=== PATIENT | female | born 1935 | race African-American/Black ===

== ENCOUNTER 2016-07-27 11:20 | Emergency (ER) | payer OTHER, BC ==
[2016-07-27 11:31] VITALS: TEMP 97.6; BMI 20.2
--- NOTE | 2016-07-27 13:19 | PDOC ---
History of Present Illness - General Chief Complaint: Pain Stated Complaint: PAIN, FEVER Time Seen by Provider: 07/27/16 12:39 History Source: Patient Exam Limitations: No Limitations - History of Present Illness Initial Comments: CHIEF COMPLAINT: 81 y/o afebrile female with PMH HTN c/o pain to left side of mouth. HISTORY OF PRESENT ILLNESS: The patient was diagnosed with a salivary gland stone via CT scan on 07/08. At that time she was given supportive care instructions and informed that the stone should pass on its own. She followed up with an ENT who started her on Augmentin and Prednisone, which she is still taking. She states her symptoms are not improving and she cannot eat. She states she can drink liquids. She also admits to fever of 102 for the past few days. She denies chills, LEIVA, n/v/d, CP, SOB, abd pain. Vital signs on arrival are notable for pulse of 95. REVIEW OF SYSTEMS: GENERAL/CONSTITUTIONAL: + fever/chills. No weakness. No weight change. HEAD, EYES, EARS, NOSE AND THROAT: No change in vision. No ear pain or discharge. No sore throat. +pain and swelling to left side of face. +pain with eating. CARDIOVASCULAR: No chest pain or shortness of breath. RESPIRATORY: No cough, wheezing, or hemoptysis. GASTROINTESTINAL: No abd pain, nausea, vomiting, diarrhea. GENITOURINARY: No dysuria, frequency, or change in urination. MUSCULOSKELETAL: No joint or muscle swelling or pain. No neck or back pain. SKIN: No rash or easy bruising. NEUROLOGIC: No headache, vertigo, loss of consciousness, or loss of sensation. PHYSICAL EXAM: GENERAL: The patient is awake, alert, and fully oriented, in no acute distress. She is well appearing, ambulatory. HEAD: Normal with no signs of trauma. Swelling to left side of face under the mandible in the area of the left submandibular gland that is TTP. ENT: Pupils equal, round and reactive to light, extraocular movements intact, sclera anicteric, conjunctiva clear. Neck supple. Visible 3cm swelling to bottom of mouth at left reji's gland. No trismus. LUNGS: Clear to auscultation bilaterally. Normal excursion. No respiratory distress or use of accessory muscles. CV: RRR, S1/S2, no MRG. Cap refill < 2 sec. ABDOMEN: Soft, non-distended, non-tender even to deep palpation, no hepatomegaly or splenomegaly, no masses. EXTREMITIES: Normal range of motion, no edema. NEUROLOGICAL: Normal speech, normal gait. CN II-XII grossly intact. PSYCH: Normal mood, normal affect. SKIN: Warm, dry, normal turgor, no rashes or lesions noted. Past History - Past Medical History Allergies/Adverse Reactions: Allergies Allergy/AdvReac Type Severity Reaction Status Date / Time No Known Allergies Allergy Verified 07/27/16 11:27 Home Medications: Ambulatory Orders Amoxicillin/Potassium Clav [Augmentin 875-125 Tablet] 1 each PO BID 07/27/16 Estrogens,Conjugated [Premarin -] 0.3 mg PO DAILY 07/27/16 Ibuprofen 600 mg PO Q6H #30 tablet 07/27/16 Prednisone [Deltasone -] 40 mg PO DAILY 07/27/16 Triamterene/Hydrochlorothiazid [Triamterene-Hctz 37.5-25 mg Cp] 1 each PO DAILY 07/27/16 Verapamil HCl [Verapamil ER] 240 mg PO DAILY 07/27/16 HTN: Yes Other medical history: lt salivary gland stone - Psycho/Social/Smoking Cessation Hx Anxiety: No Suicidal Ideation: No Smoking History: Never smoked Have you smoked in the past 12 months: No Information on smoking cessation initiated: No Hx Alcohol Use: No Drug/Substance Use Hx: No Substance Use Type: None *Physical Exam - Vital Signs Last Vital Signs Temp Pulse Resp BP Pulse Ox 97.6 F 95 H 18 129/84 100 07/27/16 11:28 07/27/16 11:28 07/27/16 11:28 07/27/16 11:28 07/27/16 11:28 ED Treatment Course - LABORATORY CBC & Chemistry Diagram: 07/27/16 14:20 07/27/16 14:20 Medical Decision Making - Medical Decision Making A/P: 81 y/o afebrile female with left submandibular gland stone that has not responded to abx or conservative treatment. Plan is as follows: 1. Labs 2. IV fluids 3. IV toradol Labs with mildly elevated WBC count without left shift. All other labs unremarkable. The patient states she feels much better after having toradol. She informs me that she was never told to take any pain medication by her doctor. I spoke with Dr. Burgos, insulation nozzleman for ENT, and he suggests she call her oral surgeon on Friday for possible surgical removal. Will discharge the patient to home. Suggested she take 600mg of Ibuprofen every 6 hours for pain/swelling with food. Instructed her to continue taking her Augmentin as prescribed and complete entire course (she states she has 4 days left). Instructed her to call her Oral surgeon on friday and return to the ER immediately if she becomes unable to swallow her own saliva or liquids. The patient verbalizes understanding of all instructions, has no further questions and is awaiting discharge. *DC/Admit/Observation/Transfer Diagnosis at time of Disposition: Salivary gland calculi - Discharge Dispostion Disposition: HOME Condition at time of disposition: Improved - Prescriptions Prescriptions: Ibuprofen 600 mg PO Q6H #30 tablet - Referrals Referrals: Giovanni Odom MD [Primary Care Provider] - - Patient Instructions Printed Discharge Instructions: Parotitis, Salivary Gland Surgery Additional Instructions: Discharge Instructions: -Continue taking your Augmentin as prescribed -Take 600mg of Ibuprofen with food every 6 hours for pain and swelling -Drink plenty of fluids and eat soft foods as tolerated -Call your oral surgeon on Friday for surgery consult -Return to the ER immediately if you become unable to swallow liquids or your own saliva
[2016-07-27] MEDS ORDERED: AMOX TR/POT CLAV 875MG/125MG TABLETS (FP) PO ONE (13:27)
[2016-07-27] MEDS ORDERED: SODIUM CHLORIDE 1,000 ML IV STA (13:39)
[2016-07-27] MEDS ORDERED: KETOROLAC TROMETHAMINE 30 MG/1 ML VIAL IVPUSH ONE (13:39)
[2016-07-27] MEDS ORDERED: AMOX TR/POT CLAV 875MG/125MG TABLETS (FP) ONE (14:09)
[2016-07-27] MEDS ORDERED: KETOROLAC TROMETHAMINE 30 MG/1 ML VIAL ONE (14:09)
[2016-07-27 14:36] LABS: BASOPHIL 0.8 % (0-2.0); EOSINOPHIL 3.8 % (0-4.5); MCH 28.8 pg (25.7-33.7); MCHC 33.2 g/dl (32.0-36.0); MEAN CELL VOLUME 86.7 fl (80-96); NEUTROPHILS 70.8 % (42.8-82.8); PLATELET COUNT 417 K/MM3 (134-434); WHITE BLOOD COUNT 10.8 K/mm3 (4.0-10.0)
[2016-07-27 14:55] LABS: ALBUMIN 3.9 g/dl (3.4-5.0); BILIRUBIN,TOTAL 0.3 mg/dL (0.2-1.0); CALCIUM 9.7 mg/dL (8.5-10.1); CREATININE 0.9 mg/dL (0.55-1.02); TOT PROT 7.8 g/dl (6.4-8.2)
[2016-07-27 16:03] VITALS: BP 143/89; PULSE 82
== END 2016-07-27 16:04 | disposition home or self-care (01) ==
LOC: JER 11:20
PROC: 3E0333Z Introduction of Anti-inflammatory into Peripheral Vein, Percutaneous Approach (ICD-10-PCS; principal; 2016-07-27)
DX: K11.5 Sialolithiasis (principal); I10 Essential (primary) hypertension
CPT/HCPCS: 36415; 80053; 85025; 96374; 99281-25